=== PATIENT | male | born 1930 | race Caucasian/White ===

== ENCOUNTER 2016-05-30 17:11 | Inpatient (IN) | payer OTHER ==
[~2016-05-30] VITALS: Ht 185.4 cm; Wt 88.6 kg
--- NOTE | ~2016-05-30 | EKG ---
[place], [place] ELECTROCARDIOGRAM REPORT NAME: ARIANA GILL UNIT #: [id number] ROOM: [id number] DOCTOR: SHAWN ALMEIDA MD BIRTHDATE: [birth year] DOS: 05/30/2016 TIME: 17:55. Sinus rhythm with occasional premature atrial contraction, non-specific T-wave flattening especially in lateral leads, abnormal electrocardiogram. SHAWN ALMEIDA MD CM:EKGRPT:ELECTROCARDIOGRAM REPORT [id number] SHAWN ALMEIDA MD
[2016-05-30 17:29] VITALS: BP 116/84
[2016-05-30 17:55] LABS: HEMOGLOBIN 8.7 g/dl (14.0-18.0); MEAN CELL VOLUME 98.9 fl (80.0-94.0); MEAN CORPUSCULAR HGB 31.9 pg (27.0-31.0); MEAN CORPUSCULAR HGB CONC 32.2 g/dl (33.0-37.0); MEAN PLATELET VOLUME 10.2 fl (9.6-12.3); PLATELET COUNT AUTOMATED 389 10*3/uL (130-400); RED BLOOD COUNT 2.73 10*6/uL (4.50-5.90); RED CELL DISTRI WIDTH 17.2 % (0-14.5)
[2016-05-30 18:11] LABS: BUN 57 mg/dl (7-24); CARBON DIOXIDE 15 mmol/L (21-32); CHLORIDE 104 mmol/L (98-107); EST GLOM FILT AFRICAN AMERICAN 22 ml/min; GLUCOSE 253 mg/dL (65-99); POTASSIUM 4.7 mmol/L (3.5-5.1); SODIUM 139 mmol/L (136-145)
[2016-05-30 18:13] LABS: TROPONIN I < 0.015 ng/ml (<0.045)
[2016-05-30 18:14] LABS: LYMPHOCYTE # 1.9 10*3/uL (1.3-4.4); METAMYELOCYTES 2 % (0-0); NEUTROPHIL # 15.8 10*3/uL (2.3-7.9); NEUTROPHILS 83 % (47-73); TOTAL CELLS COUNTED 100 #CELLS
[2016-05-30 18:15] LABS: OVALOCYTES FEW; PLATELET SUFFICIENCY NORMAL (NORMAL)
[2016-05-30] MEDS ORDERED: PAIN RELIEF325 M2 PO (19:17)
[2016-05-30] MEDS ORDERED: AVODART0.5 M1 PO (19:18)
[2016-05-30] MEDS ORDERED: ASPIRIN CHEWABL81 MG PO (19:18)
[2016-05-30] MEDS ORDERED: KEFLEX500 M1 PO (19:19)
[2016-05-30] MEDS ORDERED: LASIX20 MG PO (19:20)
[2016-05-30] MEDS ORDERED: MEGACE400 MG/10 PO (19:20)
[2016-05-30] MEDS ORDERED: EFFER-K10 MEQ PO (19:21)
[2016-05-30] MEDS ORDERED: NAMENDA10 MG PO (19:21)
[2016-05-30] MEDS ORDERED: Synthroid,Lev100 MCG PO (19:22)
[2016-05-30] MEDS ORDERED: XARELTO15 M1 PO (19:22)
[2016-05-30 19:29] LABS: BILIRUBIN 1+ (NEGATIVE); BLOOD NEGATIVE (NEGATIVE); CLARITY CLOUDY (CLEAR); COLOR YELLOW (YELLOW); GLUCOSE NEGATIVE (NEGATIVE); KETONE TRACE (NEGATIVE); LEUKO ESTERASE NEGATIVE (NEGATIVE); NITRITE NEGATIVE (NEGATIVE); PROTEIN TRACE (NEGATIVE); SPECIFIC GRAVITY >= 1.030 (1.005-1.030)
[2016-05-30 19:35] LABS: BACTERIA 1+; EPITHELIAL CELLS TNTC; RBC 0-2 rbc/hpf (0-2); URINE REFLEX COMMENT NO (NO); WBC 0-2 wbc/hpf (0-5)
[2016-05-30 19:36] VITALS: BP 118/59
[2016-05-30 20:40] VITALS: BP 111/63
[2016-05-30 21:26] VITALS: BP 111/63
[2016-05-31] VITALS (17 sets, daily range): BP systolic 103–137; BP diastolic 49–65
[2016-05-31 01:13] LABS: CKMB 1.3 ng/ml (0.5-3.6); TROPONIN I 0.016 ng/ml (<0.045)
[2016-05-31 01:56] LABS: LA>2 REFLEX 2 HR DRAW NOW
[2016-05-31 02:18] LABS: LA>2 RFLX FOLLOW UP AT 2 HRS 3.4 mmol/L (0.4-2.0)
[2016-05-31 04:09] LABS: LA>2 REFLEX 4 HR DRAW NOW
[2016-05-31 06:31] LABS: CKMB 1.7 ng/ml (0.5-3.6); CPK 27 U/L (39-308)
[2016-05-31 06:36] LABS: TROPONIN I < 0.015 ng/ml (<0.045)
[2016-05-31 06:48] LABS: MEAN CELL VOLUME 98.1 fl (80.0-94.0); MEAN CORPUSCULAR HGB 31.9 pg (27.0-31.0); MEAN CORPUSCULAR HGB CONC 32.5 g/dl (33.0-37.0); MEAN PLATELET VOLUME 11.2 fl (9.6-12.3); NUCLEATED RED BLOOD CELL 0.3 % (0.0-0.0); PLATELET COUNT AUTOMATED 301 10*3/uL (130-400); RED BLOOD COUNT 2.07 10*6/uL (4.50-5.90); RED CELL DISTRI WIDTH 16.9 % (0-14.5); WHITE BLOOD COUNT 14.7 10*3/uL (4.8-10.8)
[2016-05-31 06:49] LABS: HEMATOCRIT 20.3 % (42.0-52.0); HEMOGLOBIN 6.6 g/dl (14.0-18.0)
[2016-05-31 06:52] LABS: INTERNATIONAL NORM RATIO 1.3 (2.0-3.5); PROTHROMBIN TIME 14.3 SECONDS (9.0-12.4)
[2016-05-31 06:54] LABS: MAGNESIUM 2.1 mg/dL (1.5-2.1); POTASSIUM 4.4 mmol/L (3.5-5.1)
[2016-05-31 07:13] LABS: LYMPHOCYTE # 1.6 10*3/uL (1.3-4.4); METAMYELOCYTES 1 % (0-0); MONOCYTE # 0.6 10*3/uL (0.1-1.0); NEUTROPHIL # 12.3 10*3/uL (2.3-7.9); NEUTROPHILS 84 % (47-73); PLATELET SUFFICIENCY NORMAL (NORMAL); POLYCHROMASIA SLIGHT; TOTAL CELLS COUNTED 100 #CELLS
[2016-05-31 07:28] LABS: PHOSPHOROUS 6.3 mg/dL (2.5-4.9)
[2016-05-31 07:38] LABS: FREE T4 1.38 ng/dl (0.76-1.46); THYROID STIM HORMONE (HS) 1.57 uIU/ml (0.358-4.75)
[2016-05-31 08:48] LABS: VITAMIN D, 25-HYDROXY 19.4 ng/mL (30-100)
[2016-05-31 08:49] LABS: FOLIC ACID 9.93 ng/mL (>5.38)
[2016-05-31 10:08] LABS: HEMOGLOBIN A1c 6.6 % (4.8-5.6)
[2016-05-31 13:43] LABS: CKMB 1.1 ng/ml (0.5-3.6); CPK 24 U/L (39-308)
[2016-05-31 13:47] LABS: TROPONIN I < 0.015 ng/ml (<0.045)
[2016-06-01] VITALS: BP 113/56
[2016-06-01 06:54] LABS: HEMATOCRIT 24.1 % (42.0-52.0); HEMOGLOBIN 7.8 g/dl (14.0-18.0); MEAN CORPUSCULAR HGB 30.5 pg (27.0-31.0); MEAN CORPUSCULAR HGB CONC 32.4 g/dl (33.0-37.0); MEAN PLATELET VOLUME 10.6 fl (9.6-12.3); NUCLEATED RED BLOOD CELL 0.1 10*3/uL (0.0-0.0); NUCLEATED RED BLOOD CELL 0.9 % (0.0-0.0); RED BLOOD COUNT 2.56 10*6/uL (4.50-5.90); RED CELL DISTRI WIDTH 18.2 % (0-14.5); WHITE BLOOD COUNT 11.9 10*3/uL (4.8-10.8)
[2016-06-01 06:56] LABS: MEAN CELL VOLUME 94.1 fl (80.0-94.0); PLATELET COUNT AUTOMATED 208 10*3/uL (130-400)
[2016-06-01 07:02] LABS: ALBUMIN 2.3 gm/dl (3.1-4.5); POTASSIUM 3.7 mmol/L (3.5-5.1)
[2016-06-01 07:03] LABS: BILIRUBIN, TOTAL 0.9 mg/dl (0.2-1.0); TOTAL PROTEIN 5.3 gm/dL (6.4-8.2)
[2016-06-01 07:34] LABS: LYMPHOCYTE # 0.8 10*3/uL (1.3-4.4); METAMYELOCYTES 2 % (0-0); MONOCYTE # 0.5 10*3/uL (0.1-1.0); NEUTROPHIL # 10.4 10*3/uL (2.3-7.9); NEUTROPHILS 87 % (47-73); OVALOCYTES FEW; PLATELET SUFFICIENCY NORMAL (NORMAL); POLYCHROMASIA SLIGHT; TEAR DROP CELLS FEW; TOTAL CELLS COUNTED 100 #CELLS
[2016-06-01 08:00] VITALS: BP 112/60
[2016-06-01 12:00] VITALS: BP 112/46
[2016-06-01 16:00] VITALS: BP 118/52
[2016-06-02] VITALS: BP 120/54
[2016-06-02 08:00] VITALS: BP 125/51
[2016-06-02 12:00] VITALS: BP 126/66
[2016-06-02 16:00] VITALS: BP 110/50
[2016-06-02 20:00] VITALS: BP 122/50
[2016-06-03] VITALS: BP 127/60
[2016-06-03 08:00] VITALS: BP 129/52
[2016-06-03 12:00] VITALS: BP 126/55
[2016-06-03] MEDS ORDERED: ATROPINE 1% OPHT5 M1 SL (13:25)
[2016-06-03] MEDS ORDERED: ATIVAN1 MG PO (13:25)
[2016-06-03] MEDS ORDERED: MORPHINE S10 MG/5 M2 PO (13:25)
[2016-06-03] MEDS ORDERED: ZOFRAN ODT4 MG SL (13:26)
== END 2016-06-03 16:38 | disposition other institution (70) | DRG 871 ==
LOC: ED 17:11 → EDHOLD 18:57 → 5E 18:57
PROVIDERS: Emergency Medicine; Internal Medicine; Student in an Organized Health Care Education/Training Program
PROC: 30233N1 Transfusion of Nonautologous Red Blood Cells into Peripheral Vein, Percutaneous Approach (ICD-10-PCS; principal; 2016-05-31)
DX: A41.9 Sepsis, unspecified organism (principal); G93.41 Metabolic encephalopathy; N17.0 Acute kidney failure with tubular necrosis; I26.99 Other pulmonary embolism without acute cor pulmonale; I82.403 Acute embolism and thrombosis of unspecified deep veins of lower extremity, bilateral; E11.65 Type 2 diabetes mellitus with hyperglycemia; D68.59 Other primary thrombophilia; Z66 Do not resuscitate; I49.5 Sick sinus syndrome; I48.91 Unspecified atrial fibrillation; D64.9 Anemia, unspecified; I25.10 Atherosclerotic heart disease of native coronary artery without angina pectoris; F03.90 Unspecified dementia, unspecified severity, without behavioral disturbance, psychotic disturbance, mood disturbance, and anxiety; E03.9 Hypothyroidism, unspecified; F41.1 Generalized anxiety disorder; I10 Essential (primary) hypertension; N40.0 Benign prostatic hyperplasia without lower urinary tract symptoms; E78.5 Hyperlipidemia, unspecified; K57.90 Diverticulosis of intestine, part unspecified, without perforation or abscess without bleeding; L08.9 Local infection of the skin and subcutaneous tissue, unspecified; Z95.1 Presence of aortocoronary bypass graft; Z79.82 Long term (current) use of aspirin; Z79.2 Long term (current) use of antibiotics; Z79.899 Other long term (current) drug therapy

== ENCOUNTER 2016-07-19 19:38 | Emergency (ER) | payer OTHER ==
[~2016-07-19] VITALS: Ht 177.8 cm; Wt 95.3 kg
[~2016-07-19 19:38] MED LIST: ASPIRIN CHEWABL81 MG PO; ATIVAN1 MG PO; ATROPINE 1% OPHT5 M1 SL; AVODART0.5 M1 PO; EFFER-K10 MEQ PO; KEFLEX500 M1 PO; LASIX20 MG PO; MEGACE400 MG/10 PO; MORPHINE S10 MG/5 M2 PO; NAMENDA10 MG PO; PAIN RELIEF325 M2 PO; Synthroid,Lev100 MCG PO; XARELTO15 M1 PO; ZOFRAN ODT4 MG SL
[2016-07-19 20:33] LABS: BASO # 0.1 10*3/uL (0.0-0.1); BASO % 0.3 % (0.0-1.0); EOS # 0.2 10*3/uL (0.0-0.4); HEMATOCRIT 30.4 % (42.0-52.0); IG # 0.1 10*3/uL (0.0-0.1); LYMPH # 1.6 10*3/uL (1.3-4.4); MEAN CELL VOLUME 99.7 fl (80.0-94.0); MEAN CORPUSCULAR HGB 32.8 pg (27.0-31.0); MEAN CORPUSCULAR HGB CONC 32.9 g/dl (33.0-37.0); MEAN PLATELET VOLUME 10.6 fl (9.6-12.3); MONO # 0.7 10*3/uL (0.1-1.0); MONO % 4.2 % (3.0-9.0); NEUT # 13.5 10*3/uL (2.3-7.9); NEUT % 83.9 % (47.0-73.0); PLATELET COUNT AUTOMATED 294 10*3/uL (130-400); RED BLOOD COUNT 3.05 10*6/uL (4.50-5.90); RED CELL DISTRI WIDTH 19.5 % (0-14.5); WHITE BLOOD COUNT 16.1 10*3/uL (4.8-10.8)
[2016-07-19 20:49] LABS: PROTHROMBIN TIME 69.7 SECONDS (9.0-12.4)
[2016-07-19 20:51] LABS: CKMB 2.8 ng/ml (0.5-3.6); POTASSIUM 3.2 mmol/L (3.5-5.1)
[2016-07-19 20:53] LABS: INTERNATIONAL NORM RATIO 5.9 (2.0-3.5)
[2016-07-19 21:02] LABS: TROPONIN I 0.076 ng/ml (<0.045)
[2016-07-19 21:35] LABS: SGOT/AST 33 IU/L (3-35); SGPT/ALT 32 U/L (12-78)
[2016-07-19 23:19] LABS: BILIRUBIN NEGATIVE (NEGATIVE); BLOOD NEGATIVE (NEGATIVE); CLARITY CLEAR (CLEAR); COLOR YELLOW (YELLOW); GLUCOSE NEGATIVE (NEGATIVE); KETONE NEGATIVE (NEGATIVE); LEUKO ESTERASE NEGATIVE (NEGATIVE); NITRITE NEGATIVE (NEGATIVE); PROTEIN NEGATIVE (NEGATIVE); UROBILINOGEN 0.2 E.U./dl (0.2-1.0)
[2016-07-19 23:25] LABS: HYALINE CAST 15-20
[2016-07-19 23:26] LABS: RBC 0-2 rbc/hpf (0-2); URINE REFLEX COMMENT NO (NO); WBC 0-2 wbc/hpf (0-5)
== END 2016-07-20 02:07 | disposition home or self-care (01) ==
LOC: ED 19:38
PROVIDERS: Family Medicine
DX: R41.0 Disorientation, unspecified (principal); I48.91 Unspecified atrial fibrillation; N40.0 Benign prostatic hyperplasia without lower urinary tract symptoms; I25.10 Atherosclerotic heart disease of native coronary artery without angina pectoris; F03.90 Unspecified dementia, unspecified severity, without behavioral disturbance, psychotic disturbance, mood disturbance, and anxiety; E11.9 Type 2 diabetes mellitus without complications; F41.1 Generalized anxiety disorder; E78.5 Hyperlipidemia, unspecified; E03.9 Hypothyroidism, unspecified; Z86.711 Personal history of pulmonary embolism; Z98.890 Other specified postprocedural states; Z86.718 Personal history of other venous thrombosis and embolism; Z95.1 Presence of aortocoronary bypass graft; Z79.82 Long term (current) use of aspirin; Z79.899 Other long term (current) drug therapy